=== PATIENT | female | born 1990 | race Two or more races ===

== ENCOUNTER 2025-03-03 08:20 | Outpatient (CLI) | payer OTHER | END 2025-03-03 08:30 | disposition home or self-care (01) | LOC: SONOGRAMA 08:20 | PROVIDERS: ATTEND Pathology Anatomic Pathology | DX: C73 Malignant neoplasm of thyroid gland (principal); C77.0 Secondary and unspecified malignant neoplasm of lymph nodes of head, face and neck ==

== ENCOUNTER 2025-07-15 12:05 | Outpatient (CLI) | payer OTHER | END 2025-07-15 12:07 | disposition home or self-care (01) | LOC: NUCLEAR 12:05 | PROVIDERS: ATTEND Internal Medicine Sports Medicine | DX: C73 Malignant neoplasm of thyroid gland (principal) ==

== ENCOUNTER 2025-07-22 12:46 | Outpatient (CLI) | payer OTHER | END 2025-07-22 12:47 | disposition home or self-care (01) | LOC: NUCLEAR 12:46 | PROVIDERS: ATTEND Internal Medicine Sports Medicine | DX: C73 Malignant neoplasm of thyroid gland (principal) ==